=== PATIENT | female | born 1985 | race Caucasian/White ===

== ENCOUNTER 2017-02-28 09:37 | Inpatient (IN) | payer OTHER ==
[2017-02-28] MEDS ORDERED: HYDROmorphone 1 MG/ML 1 ML SYRINGE IVP STA (10:05)
[2017-02-28] MEDS ORDERED: ONDANSETRON 4 MG/2 ML VIAL IVP STA (10:05)
[2017-02-28] MEDS ORDERED: SODIUM CHLORIDE 0.9% 1,000 ML IV STA ×2 (10:05)
[2017-02-28] MEDS ORDERED: FAMOTIDINE 20 MG/2 ML VIAL IV STA (10:06)
--- NOTE | 2017-02-28 10:08 | ED ---
General Adult HPI - General Chief complaint: Abdominal Pain Stated complaint: CHEST PAIN, RADIATING INTO BACK Time Seen by Provider: 02/28/17 10:00 Source: patient, RN notes reviewed Mode of arrival: ambulatory Limitations: no limitations - History of Present Illness Initial comments: Patient 31-year-old female who presents emergency room today with a chief complaint of abdominal pain on and off over the past week. She does admit that in the past she was told that she had a bad gallbladder. She states she is time they do not want to take it out. She states was back in 2007. She states that over the last week she's noticed that after she eats she does have increased pain. States been tried Prilosec with some relief at times. States pain greatly increased last night is been staying in [place] at this time. The abdomen radiating up into the chest. She does admit that she feels around to the back as well. Denies any history of cardiac disease. Denies any family history of cardiac disease. She did admit to nausea. Denies any other complaints or symptoms. Patient denies any recent fever, chills, shortness of breath, numbness or tingling, dysuria or hematuria, constipation or diarrhea, headaches or visual changes, or any other complaints. - Related Data Home Medications Medication Instructions Recorded Confirmed Acetaminophen-Codeine 300-30mg 1 tab PO ONCE 02/28/17 02/28/17 [Tylenol #3] Hydrocodone/Acetaminophen [[place] 1 tab PO TID PRN 02/28/17 02/28/17 10-325] Omeprazole 20 mg PO DAILY 02/28/17 02/28/17 Previous Rx's Medication Instructions Recorded Levofloxacin [Levaquin] 750 mg PO DAILY #7 tab 02/28/17 Allergies Allergy/AdvReac Type Severity Reaction Status Date / Time codeine Allergy Rash/Hives Verified 02/28/17 10:54 Review of Systems ROS Statement: Those systems with pertinent positive or pertinent negative responses have been documented in the HPI. ROS Other: All systems not noted in ROS Statement are negative. Past Medical History Past Medical History: Hypertension History of Any Multi-Drug Resistant Organisms: None Reported Past Surgical History: No Surgical Hx Reported Past Psychological History: No Psychological Hx Reported Smoking Status: Never smoker Past Alcohol Use History: None Reported Past Drug Use History: None Reported General Exam - General Exam Comments Initial Comments: General: The patient is awake and alert, in no distress, and does not appear acutely ill. Eye: Pupils are equal, round and reactive to light, extra-ocular movements are intact. No nystagmus. There is normal conjunctiva bilaterally. No signs of icterus. Ears, nose, mouth and throat: There are moist mucous membranes and no oral lesions. Neck: The neck is supple, there is no tenderness or JVD. Cardiovascular: There is a regular rate and rhythm. No murmur, rub or gallop is appreciated. Respiratory: Lungs are clear to auscultation, respirations are non-labored, breath sounds are equal. No wheezes, stridor, rales, or rhonchi. Gastrointestinal: Normal appearance. Normal bowel sounds. Soft on palpation. Patient does have tenderness epigastric and right upper quadrant. Positive Leon sign. No rebound tenderness. No Guarding. No CVA tenderness. Musculoskeletal: Normal ROM, no tenderness. Strength 5/5. Sensation intact. Pulses equal bilaterally 2+. Neurological: A&O x 3. CN II-XII intact, There are no obvious motor or sensory deficits. Coordination appears grossly intact. Speech is normal. Skin: Skin is warm and dry and no rashes or lesions are noted. Psychiatric: Cooperative, appropriate mood & affect, normal judgment. Limitations: no limitations Course Vital Signs 02/28/17 09:45 Temperature 97.3 F L Pulse Rate 98 Respiratory 20 Rate Blood Pressure 183/94 O2 Sat by Pulse 99 Oximetry Medical Decision Making - Medical Decision Making Patient's ultrasound does show evidence of multiple gallstones. Patient's labs been reviewed and does show elevated amylase lipase. Patient's urinalysis shows evidence for infection. Will be started on Unasyn here in the emergency room. Patient will be admitted to the hospitalist. Patient is aware the plan states understanding. patient discussed with admitting physician Dr. Moore was seen the patient here in emergency room and we'll consult surgery. - Lab Data Result diagrams: 02/28/17 10:35 02/28/17 10:35 Lab Results 02/28/17 02/28/17 02/28/17 Range/Units 10:35 10:35 10:35 WBC 7.3 (3.8-10.6) k/uL RBC 4.89 (3.80-5.40) m/uL Hgb 12.3 (11.4-16.0) gm/dL Hct 38.4 (34.0-46.0) % MCV 78.5 L (80.0-100.0) fL MCH 25.1 (25.0-35.0) pg MCHC 32.0 (31.0-37.0) g/dL RDW 15.1 (11.5-15.5) % Plt Count 314 (150-450) k/uL Neutrophils % 69 % Lymphocytes % 22 % Monocytes % 5 % Eosinophils % 1 % Basophils % 1 % Neutrophils # 5.1 (1.3-7.7) k/uL Lymphocytes # 1.6 (1.0-4.8) k/uL Monocytes # 0.4 (0-1.0) k/uL Eosinophils # 0.1 (0-0.7) k/uL Basophils # 0.1 (0-0.2) k/uL Hypochromasia Moderate PT (9.0-12.0) sec INR (<1.1) APTT (22.0-30.0) sec Sodium 141 (137-145) mmol/L Potassium 4.1 (3.5-5.1) mmol/L Chloride 106 (98-107) mmol/L Carbon Dioxide 23 (22-30) mmol/L Anion Gap 12 mmol/L BUN 8 (7-17) mg/dL Creatinine 0.70 (0.52-1.04) mg/dL Est GFR (MDRD) Af Amer >60 (>60 ml/min/1.73 sqM) Est GFR (MDRD) Non-Af >60 (>60 ml/min/1.73 sqM) Glucose 107 H (74-99) mg/dL Calcium 9.7 (8.4-10.2) mg/dL Total Bilirubin 1.4 H (0.2-1.3) mg/dL AST 322 H (14-36) U/L ALT 355 H (9-52) U/L Alkaline Phosphatase 583 H (38-126) U/L Total Creatine Kinase 29 L (30-135) U/L CK-MB (CK-2) 0.4 (0.0-2.4) ng/mL CK-MB (CK-2) Rel Index 1.4 Troponin I <0.012 (0.000-0.034) ng/mL Total Protein 7.8 (6.3-8.2) g/dL Albumin 4.5 (3.5-5.0) g/dL Amylase 148 H (30-110) U/L Lipase 1759 H (23-300) U/L Urine Color Urine Appearance (Clear) Urine pH (5.0-8.0) Ur Specific [place] (1.001-1.035) Urine Protein (Negative) Urine Glucose (UA) (Negative) Urine Ketones (Negative) Urine Blood (Negative) Urine Nitrite (Negative) Urine Bilirubin (Negative) Urine Urobilinogen (<2.0) mg/dL Ur Leukocyte Esterase (Negative) Urine RBC (0-5) /hpf Urine WBC (0-5) /hpf Ur Squamous Epith Cells (0-4) /hpf Amorphous Sediment (None) /hpf Urine Bacteria (None) /hpf Urine Mucus (None) /hpf Urine HCG, Qual (Not Detectd) 02/28/17 02/28/17 02/28/17 Range/Units 10:35 10:35 10:35 WBC (3.8-10.6) k/uL RBC (3.80-5.40) m/uL Hgb (11.4-16.0) gm/dL Hct (34.0-46.0) % MCV (80.0-100.0) fL MCH (25.0-35.0) pg MCHC (31.0-37.0) g/dL RDW (11.5-15.5) % Plt Count (150-450) k/uL Neutrophils % % Lymphocytes % % Monocytes % % Eosinophils % % Basophils % % Neutrophils # (1.3-7.7) k/uL Lymphocytes # (1.0-4.8) k/uL Monocytes # (0-1.0) k/uL Eosinophils # (0-0.7) k/uL Basophils # (0-0.2) k/uL Hypochromasia PT 9.9 (9.0-12.0) sec INR 1.0 (<1.1) APTT 23.4 (22.0-30.0) sec Sodium (137-145) mmol/L Potassium (3.5-5.1) mmol/L Chloride (98-107) mmol/L Carbon Dioxide (22-30) mmol/L Anion Gap mmol/L BUN (7-17) mg/dL Creatinine (0.52-1.04) mg/dL Est GFR (MDRD) Af Amer (>60 ml/min/1.73 sqM) Est GFR (MDRD) Non-Af (>60 ml/min/1.73 sqM) Glucose (74-99) mg/dL Calcium (8.4-10.2) mg/dL Total Bilirubin (0.2-1.3) mg/dL AST (14-36) U/L ALT (9-52) U/L Alkaline Phosphatase (38-126) U/L Total Creatine Kinase (30-135) U/L CK-MB (CK-2) (0.0-2.4) ng/mL CK-MB (CK-2) Rel Index Troponin I (0.000-0.034) ng/mL Total Protein (6.3-8.2) g/dL Albumin (3.5-5.0) g/dL Amylase (30-110) U/L Lipase (23-300) U/L Urine Color Yellow Urine Appearance Turbid H (Clear) Urine pH 8.0 (5.0-8.0) Ur Specific [place] 1.013 (1.001-1.035) Urine Protein Trace H (Negative) Urine Glucose (UA) Negative (Negative) Urine Ketones Negative (Negative) Urine Blood Negative (Negative) Urine Nitrite Positive H (Negative) Urine Bilirubin Negative (Negative) Urine Urobilinogen 12.0 (<2.0) mg/dL Ur Leukocyte Esterase Small H (Negative) Urine RBC 10 H (0-5) /hpf Urine WBC 23 H (0-5) /hpf Ur Squamous Epith Cells 17 H (0-4) /hpf Amorphous Sediment Rare H (None) /hpf Urine Bacteria Occasional H (None) /hpf Urine Mucus Rare H (None) /hpf Urine HCG, Qual Not Detected (Not Detectd) Disposition Clinical Impression: Choledocholithiasis, Pancreatitis, UTI (urinary tract infection) Disposition: ADMITTED IP TO THIS [facility] Condition: Stable Prescriptions: Levofloxacin [Levaquin] 750 mg PO DAILY #7 tab Referrals: Hernan Lizarraga MD [Primary Care Provider] - 1-2 days Time of Disposition: 12:30
[2017-02-28 10:47] LABS: Basophils # (A) 0.1 k/uL (0-0.2); Basophils % (A) 1 %; CH 24.5; CHCM 31.3; Eosinophils # (A) 0.1 k/uL (0-0.7); Eosinophils % (A) 1 %; HCT 38.4 % (34.0-46.0); HDW 3.12; HGB 12.3 gm/dL (11.4-16.0); Hypochromasia Moderate; Luc % (Auto) 1; Lymphocytes # (A) 1.6 k/uL (1.0-4.8); Lymphocytes % (A) 22 %; MCH 25.1 pg (25.0-35.0); MCV 78.5 fL (80.0-100.0); Monocytes # (A) 0.4 k/uL (0-1.0); Monocytes % (A) 5 %; Neutrophils # (A) 5.1 k/uL (1.3-7.7); Neutrophils % (A) 69 %; RBC 4.89 m/uL (3.80-5.40); RDW 15.1 % (11.5-15.5); WBC 7.3 k/uL (3.8-10.6); WBC (Perox) 6.85
[2017-02-28 10:55] LABS: Amorphous Sediment,Urine Rare /hpf; Appearance,Urine Turbid (Clear); Bacteria,Urine Occasional /hpf; Bilirubin,Urine Negative (Negative); Glucose,Urine (UA) Negative (Negative); Ketones,Urine Negative (Negative); Leukocyte Esterase,Urine Small (Negative); Mucus,Urine Rare /hpf; Nitrite,Urine Positive (Negative); Particle Count 50271; Protein,Urine Trace (Negative); RBC,Urine 10 /hpf (0-5); Specific Gravity,Urine 1.013 (1.001-1.035); Squamous Epithelial Cell,Urine 17 /hpf (0-4); UA Billing (MACRO vs. MICRO) MICRO; WBC,Urine 23 /hpf (0-5)
[2017-02-28 10:58] LABS: Partial Thromboplastin Time 23.4 sec (22.0-30.0); Prothrombin Time 9.9 sec (9.0-12.0)
[2017-02-28 11:00] LABS: ALT 355 U/L (9-52); AST 322 U/L (14-36); Alkaline Phosphatase 583 U/L (38-126); Amylase 148 U/L (30-110); Anion Gap 12 mmol/L; Blood Urea Nitrogen 8 mg/dL (7-17); Calcium 9.7 mg/dL (8.4-10.2); Carbon Dioxide 23 mmol/L (22-30); Chloride 106 mmol/L (98-107); Glucose 107 mg/dL (74-99); Non-African American GFR(MDRD) >60 (>60 ml/min/1.73 sqM); Potassium 4.1 mmol/L (3.5-5.1); Sodium 141 mmol/L (137-145); Total Bilirubin 1.4 mg/dL (0.2-1.3); Total Protein 7.8 g/dL (6.3-8.2)
[2017-02-28 11:11] LABS: Creatine Kinase 29 U/L (30-135)
[2017-02-28 11:22] LABS: Creatine Kinase MB 0.4 ng/mL (0.0-2.4); Troponin I <0.012 ng/mL (0.000-0.034)
--- NOTE | 2017-02-28 12:12 | US ---
EXAMINATION TYPE: US abdomen limited DATE OF EXAM: 02/28/2017 11:55 AM COMPARISON: NONE CLINICAL HISTORY: Pain. Pain radiating to the back. NPO. EXAM MEASUREMENTS: Liver Length: 18.4 cm Gallbladder Wall: 0.3 cm CBD: 0.2 cm Right Kidney: 10.8 x 5.3 x 4.7 cm Pancreas: Head and tail not well seen due overlying bowel gas. Main pancreatic duct- 2.2 mm Liver: Enlarged. Left lobe not well seen due to overlying bowel gas Gallbladder: Suboptimal visualization of portions of GB. Multiple mobile stones. Lesion seen adjace nt to wall with vascular flow = 1.1 x 0.6 x 0.6 cm. Evidence for sonographic Leon's sign: neg CBD: wnl Right Kidney: wnl Visualized pancreas is felt within normal limits, portions are secured by overlying bowel gas. Visual ized liver is slightly heterogeneous without worrisome mass or ductal dilatation. Gallbladder is subo ptimally seen with shadowing mobile gallstones noted. Gallbladder wall thickness is felt slightly lob ulated and thickened on images saved at portions. No pericholecystic fluid is seen. Sonographic Todd y's sign is negative per technologist performing study. IMPRESSION: Multiple gallstones with irregularity of gallbladder wall in which abnormal wall thicken ing cannot be excluded, differential includes polyposis. No additional convincing secondary ultrasoun d evidence for acute cholecystitis. Consider HIDA scan correlation or follow-up.
--- NOTE | 2017-02-28 12:31 | XR ---
EXAMINATION TYPE: XR KUB DATE OF EXAM: 02/28/2017 12:13 PM COMPARISON: Ultrasound 02/28/2017 HISTORY: Abdominal pain TECHNIQUE: One view abdominal series FINDINGS: The osseous structures are intact. The bowel gas pattern is nonspecific. Lung bases are clear. IMPRESSION: 1. Nonspecific abdomen.
[2017-02-28] MEDS ORDERED: AMPICILLIN-SULBACTAM 3 GM in SODIUM CHLORIDE 0.9% 100 ML IVPB STA (12:39)
[2017-02-28] MEDS ORDERED: SODIUM CHLORIDE 0.9% 1,000 ML IV ONE (12:48)
[2017-02-28] MEDS ORDERED: NALOXONE 0.4 MG/ML 1 ML VIAL IV PRN (12:48)
[2017-02-28] MEDS ORDERED: PANTOPRAZOLE 40 MG/10 ML VIAL IVP STA (12:51)
[2017-02-28] MEDS: SODIUM CHLORIDE 0.9% 1,000 ML IV SCH ×2 (14:00→20:49)
--- NOTE | 2017-02-28 15:07 | HP ---
DATE OF ADMISSION: Patient is a very pleasant 31-year-old female who came in with complaints of epigastric abdominal pain, 9/10 in severity along with GERD -like symptoms and patient initially thought it is acid reflux and took some pain medications, which did not help her. Her symptoms started mostly, was on and off for the past week and more severe today and patient was complaining of some nausea. Denied any vomiting, denied any diarrhea. Denied any blood in the stools, hematemesis, hematochezia. In ER, patient was found to have elevated lipase and patient had an ultrasound of the abdomen which showed cholelithiasis and as per the reading from the radiologist, there may be a possibility of cholecystitis, although symptomatically when I examined the patient, patient Leon's sign is negative but patient just received pain medications by the time I examined the patient. Patient apparently had right upper quadrant abdominal pain as well, radiating to the back or the shoulder area which is probably from the cholelithiasis which is sharp in nature. Patient denied any fever, does not have any leukocytosis. Patient was started on antibiotics, which is probably reasonable at this point of time until surgical evaluation is done, although possibility of cholecystitis is low, patient mostly has cholelithiasis, gallstone pancreatitis. Along with that, patient may have some gastritis as well. Patient has elevated liver enzymes which will need to be monitored. This is probably because of the gallbladder disease or cholelithiasis. REVIEW OF SYSTEMS: GASTROINTESTINAL: As described in HPI. CONSTITUTIONAL: No fever, no malaise, no fatigue. HEENT: No recent visual problems or hearing problems. Denied any sore throat. CARDIOVASCULAR: No chest pain, orthopnea, PND, no palpitations, no syncope. PULMONARY: No shortness of breath, no cough, no hemoptysis. NEUROLOGICAL: No headaches, no weakness, no numbness. HEMATOLOGICAL: Denies any bleeding or petechiae. GENITOURINARY: Denies any burning micturition, frequency, or urgency. MUSCULOSKELETAL/RHEUMATOLOGICAL: Denies any joint pain, swelling, or any muscle pain. ENDOCRINE: Denies any polyuria or polydipsia. The rest of the 14 point review of systems is negative. Home medications include: 1. Acetaminophen. 2. Hydrocodone. 3. Omeprazole. PAST MEDICAL HISTORY: None. It was documented patient has hypertension. PAST SURGICAL HISTORY: None. SOCIAL HISTORY: Denied any smoking, alcohol abuse or any drug abuse. FAMILY HISTORY: Denied any family history of hypertension, diabetes mellitus in the family. PHYSICAL EXAMINATION: Temperature 97.3, pulse of 98, respiratory rate of 20, blood pressure 183/94, saturating at 99% on room air. ABDOMEN: Patient's Leon sign is negative, bowels sounds are present. Patient's abdomen is soft. There is very minimal epigastric abdominal tenderness and no rebound or rigidity was appreciated. GENERAL: The patient is alert and oriented x3, not in any acute distress. Well developed, well nourished. HEENT: Pupils are round and equally reacting to light. EOMI. No scleral icterus. No conjunctival pallor. Normocephalic, atraumatic. No pharyngeal erythema. No thyromegaly. CARDIOVASCULAR: S1 and S2 present. No murmurs, rubs, or gallops. PULMONARY: Chest is clear to auscultation, no wheezing or crackles. MUSCULOSKELETAL: No joint swelling or deformity. EXTREMITIES: No cyanosis, clubbing, or pedal edema. NEUROLOGICAL: Gross neurological examination did not reveal any focal deficits. SKIN: No rashes. LABORATORY DATA: CBC, CMP are abnormal for elevated bilirubin of 1.4, AST and ALT at 322 and 355. Amylase is 148, lipase is 759. Ultrasound of the gallbladder as mentioned above. KUB x-ray was reviewed. ASSESSMENT AND PLAN: 1. Gallstone pancreatitis. Patient will be n.p.o. Patient will be started on IV fluids at 125/mL/h. 2. Possible gastritis. 3. Cholelithiasis, the possibility of cholecystitis is low until surgical evaluation. Unasyn will be continued which was ordered from ER. 4. Elevated liver enzymes secondary to cholelithiasis. Patient's Tylenol-based medications will be held and repeat comprehensive metabolic profile tomorrow.
[2017-02-28] MEDS: HYDROmorphone 1 MG/ML 1 ML SYRINGE IV PRN ×3 (17:10→22:51)
--- NOTE | 2017-02-28 17:32 | P.GSCN ---
History of Present Illness Consult date: 02/28/17 Reason for Consult: Gallstone pancreatitis History of present illness: The patient says she has a history of gallstones. She has had intermittent attacks over the years. She began expressing pain yesterday evening around 8: 30 or 9:00. Pain was in the upper abdomen more on the right side. There was radiation to the back. No nausea or vomiting. Pain is improved today. Her labs show evidence of gallstone pancreatitis. She denies any change in the color of her skin urine or stool. She is afebrile. White blood cell count is normal. Review of Systems The patient denies any acute changes in his vision or hearing, no dysphagia or odynophagia, no chest pain or shortness of breath, no dysuria or hematuria, no headache, no runny nose, no rectal bleeding or melena, no unexplained weight loss Past Medical History Past Medical History: Hypertension Additional Past Medical History / Comment(s): 2007 gallbladder problems during , lately HTN but not started on any meds yet, UTIs. History of Any Multi-Drug Resistant Organisms: None Reported Past Surgical History: No Surgical Hx Reported Past Anesthesia/Blood Transfusion Reactions: No Reported Reaction Additional Past Anesthesia/Blood Transfusion Reaction / Comm: Pt has never had anesthesia. Past Psychological History: No Psychological Hx Reported Additional Psychological History / Comment(s): Pt resides with [facility] and 8 children ages 8 months to 12 yrs of age. She is independent. Smoking Status: Never smoker Past Alcohol Use History: None Reported Past Drug Use History: None Reported - Past Family History Mother Family Medical History: Cancer Additional Family Medical History / Comment(s): Mother of bilateral renal cancer at the age of 52 yrs. Father Family Medical History: Blood Disorder, Hyperlipidemia, Hypertension Additional Family Medical History / Comment(s): Father has a blood disorder but pt does not recall what type. He sees an oncologist monthly. Medications and Allergies Home Medications Medication Instructions Recorded Confirmed Type Acetaminophen-Codeine 300-30mg 1 tab PO ONCE 02/28/17 02/28/17 History [Tylenol #3] Hydrocodone/Acetaminophen [[place] 1 tab PO TID PRN 02/28/17 02/28/17 History 10-325] Omeprazole 20 mg PO DAILY 02/28/17 02/28/17 History Allergies Allergy/AdvReac Type Severity Reaction Status Date / Time codeine Allergy Rash/Hives Verified 02/28/17 16:39 Surgical - Exam Vital Signs Temp Pulse Resp BP Pulse Ox 97.3 F L 98 20 183/94 99 02/28/17 09:45 02/28/17 09:45 02/28/17 09:45 02/28/17 09:45 02/28/17 09:45 Physical exam: General: Well-developed, well-nourished HEENT: Normocephalic, sclerae nonicteric Abdomen: Mild epigastric tenderness, nondistended Extremities: No edema Neuro: Alert and oriented Results - Labs 02/28/17 10:35 02/28/17 10:35 Abnormal Lab Results - Last 24 Hours (Table) 02/28/17 02/28/17 02/28/17 Range/Units 10:35 10:35 10:35 MCV 78.5 L (80.0-100.0) fL Glucose 107 H (74-99) mg/dL Total Bilirubin 1.4 H (0.2-1.3) mg/dL AST 322 H (14-36) U/L ALT 355 H (9-52) U/L Alkaline Phosphatase 583 H (38-126) U/L Total Creatine Kinase 29 L (30-135) U/L Amylase 148 H (30-110) U/L Lipase 1759 H (23-300) U/L Urine Appearance (Clear) Urine Protein (Negative) Urine Nitrite (Negative) Ur Leukocyte Esterase (Negative) Urine RBC (0-5) /hpf Urine WBC (0-5) /hpf Ur Squamous Epith Cells (0-4) /hpf Amorphous Sediment (None) /hpf Urine Bacteria (None) /hpf Urine Mucus (None) /hpf 02/28/17 Range/Units 10:35 MCV (80.0-100.0) fL Glucose (74-99) mg/dL Total Bilirubin (0.2-1.3) mg/dL AST (14-36) U/L ALT (9-52) U/L Alkaline Phosphatase (38-126) U/L Total Creatine Kinase (30-135) U/L Amylase (30-110) U/L Lipase (23-300) U/L Urine Appearance Turbid H (Clear) Urine Protein Trace H (Negative) Urine Nitrite Positive H (Negative) Ur Leukocyte Esterase Small H (Negative) Urine RBC 10 H (0-5) /hpf Urine WBC 23 H (0-5) /hpf Ur Squamous Epith Cells 17 H (0-4) /hpf Amorphous Sediment Rare H (None) /hpf Urine Bacteria Occasional H (None) /hpf Urine Mucus Rare H (None) /hpf Diabetes panel 02/28/17 Range/Units 10:35 Sodium 141 (137-145) mmol/L Potassium 4.1 (3.5-5.1) mmol/L Chloride 106 (98-107) mmol/L Carbon Dioxide 23 (22-30) mmol/L BUN 8 (7-17) mg/dL Creatinine 0.70 (0.52-1.04) mg/dL Glucose 107 H (74-99) mg/dL Calcium 9.7 (8.4-10.2) mg/dL AST 322 H (14-36) U/L ALT 355 H (9-52) U/L Alkaline Phosphatase 583 H (38-126) U/L Total Protein 7.8 (6.3-8.2) g/dL Albumin 4.5 (3.5-5.0) g/dL Calcium panel 02/28/17 Range/Units 10:35 Calcium 9.7 (8.4-10.2) mg/dL Albumin 4.5 (3.5-5.0) g/dL Pituitary panel 02/28/17 Range/Units 10:35 Sodium 141 (137-145) mmol/L Potassium 4.1 (3.5-5.1) mmol/L Chloride 106 (98-107) mmol/L Carbon Dioxide 23 (22-30) mmol/L BUN 8 (7-17) mg/dL Creatinine 0.70 (0.52-1.04) mg/dL Glucose 107 H (74-99) mg/dL Calcium 9.7 (8.4-10.2) mg/dL Adrenal panel 02/28/17 Range/Units 10:35 Sodium 141 (137-145) mmol/L Potassium 4.1 (3.5-5.1) mmol/L Chloride 106 (98-107) mmol/L Carbon Dioxide 23 (22-30) mmol/L BUN 8 (7-17) mg/dL Creatinine 0.70 (0.52-1.04) mg/dL Glucose 107 H (74-99) mg/dL Calcium 9.7 (8.4-10.2) mg/dL Total Bilirubin 1.4 H (0.2-1.3) mg/dL AST 322 H (14-36) U/L ALT 355 H (9-52) U/L Alkaline Phosphatase 583 H (38-126) U/L Total Protein 7.8 (6.3-8.2) g/dL Albumin 4.5 (3.5-5.0) g/dL Assessment and Plan (1) Gallstone pancreatitis Narrative/Plan: Continue empiric antibiotics. Clear liquid diet. Recheck labs tomorrow. Status: Acute
[2017-02-28] MEDS: AMPICILLIN-SULBACTAM 3 GM in SODIUM CHLORIDE 0.9% 100 ML IVPB SCH (20:49)
[2017-03-01] MEDS: HYDROmorphone 1 MG/ML 1 ML SYRINGE IV PRN ×2 (02:49→13:53)
[2017-03-01] MEDS: AMPICILLIN-SULBACTAM 3 GM in SODIUM CHLORIDE 0.9% 100 ML IVPB SCH (05:18)
[2017-03-01 06:18] LABS: ALT 400 U/L (9-52); AST 298 U/L (14-36); Alkaline Phosphatase 417 U/L (38-126); Amylase 51 U/L (30-110); Anion Gap 10 mmol/L; Blood Urea Nitrogen 5 mg/dL (7-17); Carbon Dioxide 19 mmol/L (22-30); Chloride 110 mmol/L (98-107); Glucose 89 mg/dL (74-99); Non-African American GFR(MDRD) >60 (>60 ml/min/1.73 sqM); Potassium 3.9 mmol/L (3.5-5.1); Sodium 139 mmol/L (137-145); Total Bilirubin 0.5 mg/dL (0.2-1.3); Total Protein 6.4 g/dL (6.3-8.2)
[2017-03-01 07:14] LABS: Basophils % (A) 1 %; CH 24.1; CHCM 29.9; Eosinophils # (A) 0.1 k/uL (0-0.7); Eosinophils % (A) 2 %; HDW 2.87; HGB 10.9 gm/dL (11.4-16.0); Hypochromasia Marked; Luc # (Auto) 0.13; Luc % (Auto) 2; Lymphocytes # (A) 1.8 k/uL (1.0-4.8); Lymphocytes % (A) 31 %; MCH 25.3 pg (25.0-35.0); MCHC 31.3 g/dL (31.0-37.0); MCV 80.9 fL (80.0-100.0); Mean Platelet Volume 7.3; Monocytes # (A) 0.3 k/uL (0-1.0); Monocytes % (A) 5 %; Neutrophils # (A) 3.4 k/uL (1.3-7.7); Neutrophils % (A) 59 %; RBC 4.32 m/uL (3.80-5.40); RDW 15.5 % (11.5-15.5); WBC 5.8 k/uL (3.8-10.6); WBC (Perox) 6.24
[2017-03-01] MEDS ORDERED: PANTOPRAZOLE 40 MG/10 ML VIAL IVP SCH (09:00)
--- NOTE | 2017-03-01 11:33 | P.PN ---
Subjective Principal diagnosis: Gallstone pancreatitis Patient doing well today. Her pain is now resolved. Her amylase and lipase are normalized. Liver enzymes are improved. She would like to eat more today. Objective - Vital Signs Vital signs: Vital Signs Temp 98.0 F 03/01/17 08:03 Pulse 82 03/01/17 08:03 Resp 16 03/01/17 08:03 BP 120/73 03/01/17 08:03 Pulse Ox 96 03/01/17 08:03 Intake & Output 02/28/17 03/01/17 03/01/17 18:59 06:59 18:59 Intake Total 2120 Balance 2120 Weight 107.955 kg Intake: IV 200 Ampicillin-Sulbactam 3 gm 200 In Sodium Chloride 0.9% 100 ml @ 100 mls/hr IVPB ONCE STA Rx#:[id number] Intake, IV Titration 1920 Amount Sodium Chloride 0.9% 1, 1920 000 ml @ 125 mls/hr IV . Q8H VIANEY Rx#:[id number] Other: # Voids 1 - Exam Abdomen: Soft, nondistended, nontender - Labs CBC & Chem 7: 03/01/17 05:36 03/01/17 05:36 Labs: Abnormal Lab Results - Last 24 Hours (Table) 03/01/17 03/01/17 Range/Units 05:36 05:36 Hgb 10.9 L (11.4-16.0) gm/dL Chloride 110 H (98-107) mmol/L Carbon Dioxide 19 L (22-30) mmol/L BUN 5 L (7-17) mg/dL AST 298 H (14-36) U/L ALT 400 H (9-52) U/L Alkaline Phosphatase 417 H (38-126) U/L Assessment and Plan (1) Gallstone pancreatitis Narrative/Plan: Continue to advance diet as tolerated. Patient would like to go home and schedule outpatient cholecystectomy which is reasonable. Outpatient follow-up with Dr. Huffman. Status: Acute
[2017-03-01] MEDS: SODIUM CHLORIDE 0.9% 1,000 ML IV SCH ×2 (13:59)
--- NOTE | 2017-03-01 14:20 | DS ---
DATE OF ADMISSION: 02/28/2017 DATE OF DISCHARGE: Patient is a 31-year-old, came in for gallstone pancreatitis. Patient is feeling much better today. Patient will be discharged today. Patient still has mildly elevated liver enzymes, if they trend down today, patient will discharge and patient's diet is being advanced to soft diet. Patient was evaluated by Dr. Sharif Scott and patient will need gallbladder surgery down the line and patient will be set up a followup with Dr. Scott as an outpatient. This dictation is both progress note and discharge summary. Patient's liver enzymes lipase has come down. VITAL SIGNS: Temperature 97.8, pulse of 93, respiratory rate of 16, blood pressure is 138/84, saturating at 96% on room air. ABDOMEN: Patient's abdominal pain completely resolved at this point of time. GENERAL: The patient is alert and oriented x3, not in any acute distress. Well developed, well nourished. HEENT: Pupils are round and equally reacting to light. EOMI. No scleral icterus. No conjunctival pallor. Normocephalic, atraumatic. No pharyngeal erythema. No thyromegaly. CARDIOVASCULAR: S1 and S2 present. No murmurs, rubs, or gallops. PULMONARY: Chest is clear to auscultation, no wheezing or crackles. MUSCULOSKELETAL: No joint swelling or deformity. EXTREMITIES: No cyanosis, clubbing, or pedal edema. NEUROLOGICAL: Gross neurological examination did not reveal any focal deficits. SKIN: No rashes. LABORATORY DATA: Patient AST has come down. ALT has gone up a little bit, bilirubin has come down. Patient has gallstone, low suspicion for cholecystitis. Will not require any antibiotics in my opinion and Tylenol No. 3, hydrocodone, [place] are discontinued because of elevated liver enzymes and patient will be given prescription for tramadol and follow with Dr. Scott as an outpatient. ASSESSMENT AND PLAN: 1. Gallstone pancreatitis. 2. Cholelithiasis. 3. Possible gastritis. 4. Elevated liver enzymes due to ( ) gallstones and patient if cleared by Dr. Scott, patient will be discharged today after advancing the diet, if she is able to tolerate soft diet and patient will discharge on Prilosec and tramadol. Patient will follow with Dr. Lizarraga in 3 to 7 days; Dr. Sharif Scott in about a week to 2 weeks. Patient eventually will need cholecystectomy. Spent greater than 35 minutes in total discharge. DISCHARGE DIET: Low fat diet. Activity as tolerated.
[2017-03-01 15:54] LABS: Bilirubin, Delta 0.2 mg/dL (0.0-0.2); Total Bilirubin 0.4 mg/dL (0.2-1.3); Total Protein 6.6 g/dL (6.3-8.2)
[2017-03-02] MEDS: HYDROmorphone 1 MG/ML 1 ML SYRINGE IV PRN ×2 (06:09→12:25)
[2017-03-02 06:14] LABS: Basophils % (A) 1 %; CH 24.3; CHCM 30.7; Eosinophils # (A) 0.1 k/uL (0-0.7); Eosinophils % (A) 2 %; HCT 34.7 % (34.0-46.0); HDW 3.07; HGB 10.8 gm/dL (11.4-16.0); Hypochromasia Moderate; Luc # (Auto) 0.12; Luc % (Auto) 2; Lymphocytes # (A) 2.1 k/uL (1.0-4.8); Lymphocytes % (A) 33 %; MCH 24.6 pg (25.0-35.0); MCV 79.3 fL (80.0-100.0); Mean Platelet Volume 7.3; Monocytes # (A) 0.4 k/uL (0-1.0); Monocytes % (A) 6 %; Neutrophils # (A) 3.6 k/uL (1.3-7.7); Neutrophils % (A) 57 %; RBC 4.38 m/uL (3.80-5.40); RDW 15.2 % (11.5-15.5); WBC 6.4 k/uL (3.8-10.6); WBC (Perox) 6.09
[2017-03-02 06:34] LABS: ALT 274 U/L (9-52); AST 115 U/L (14-36); Alkaline Phosphatase 375 U/L (38-126); Anion Gap 9 mmol/L; Blood Urea Nitrogen 5 mg/dL (7-17); Calcium 9.2 mg/dL (8.4-10.2); Carbon Dioxide 23 mmol/L (22-30); Chloride 108 mmol/L (98-107); Glucose 95 mg/dL (74-99); Non-African American GFR(MDRD) >60 (>60 ml/min/1.73 sqM); Sodium 140 mmol/L (137-145); Total Bilirubin 0.4 mg/dL (0.2-1.3); Total Protein 6.7 g/dL (6.3-8.2)
--- NOTE | 2017-03-02 10:54 | P.PN ---
Subjective Principal diagnosis: Gallstone pancreatitis Patient was going to go home last night however had some increased abdominal pain once again. She feels better this morning. She would like to go home today. Her liver enzymes are trending down. Objective - Vital Signs Vital signs: Vital Signs Temp 98.7 F 03/01/17 20:14 Pulse 71 03/01/17 20:14 Resp 18 03/01/17 23:00 BP 128/76 03/01/17 20:14 Pulse Ox 99 03/01/17 20:14 Intake & Output 03/01/17 03/02/17 03/02/17 18:59 06:59 18:59 Intake Total 210 600 300 Balance 210 600 300 Intake: Oral 210 600 300 Other: # Voids 2 2 - Exam Abdomen: Soft, nondistended, nontender - Labs CBC & Chem 7: 03/02/17 05:52 03/02/17 05:52 Labs: Abnormal Lab Results - Last 24 Hours (Table) 03/01/17 03/02/17 03/02/17 Range/Units 15:16 05:52 05:52 Hgb 10.8 L (11.4-16.0) gm/dL MCV 79.3 L (80.0-100.0) fL MCH 24.6 L (25.0-35.0) pg Chloride 108 H (98-107) mmol/L BUN 5 L (7-17) mg/dL AST 210 H 115 H (14-36) U/L ALT 351 H 274 H (9-52) U/L Alkaline Phosphatase 399 H 375 H (38-126) U/L Assessment and Plan (1) Gallstone pancreatitis Narrative/Plan: Begins I soft diet. Outpatient follow-up for cholecystectomy. Status: Acute
[2017-03-02 11:02] VITALS: BMI 38.4
[2017-03-02 13:02] VITALS: RESP 20
[2017-03-02 18:13] VITALS: BP 144/78; PULSE 85; TEMP 98
--- NOTE | 2017-03-02 20:29 | DS ---
DATE OF ADMISSION: 02/28/2017 DATE OF DISCHARGE: 03/02/2017 HOSPITAL COURSE: Ms. Salvador is a 31-year-old female with a past medical history of chronic low back pain. Admitted to the hospital for gallstone pancreatitis. Patient was initially given IV fluids, also started on antibiotics. After getting IV fluids and keeping her n.p.o. her enzymes did trend down. She is currently asymptomatic, tolerated a soft diet this afternoon and has been cleared by surgical services to be discharged home in stable condition. The patient's liver enzymes are trending down. On examination, patient's vital signs at the time of discharge: Temperature is 98, heart rate 86, respiratory rate 20, blood pressure 142/75, saturating at 100% on room air. GENERAL EXAMINATION: Patient appears to be no acute distress. HEAD: Atraumatic, normocephalic. EYES: Pupils, round, and reactive to light. No pallor. No icterus. NECK: No JVD. No thyromegaly. CARDIOVASCULAR: S1, S2 heard. LUNGS: Bilateral breath sounds are positive. No wheeze or crackles. ABDOMEN: Soft, nontender. Bowel sounds positive. EXTREMITIES: Alert, awake and oriented x3. The patient's labs: White count is 6.4, hemoglobin is 10.8, platelets of 308. Sodium 140, potassium 4, chloride 108, bicarb 23, BUN 5, creatinine 0.70, AST 115, AST 274. Alkaline phosphatase 375. DISCHARGE DIAGNOSES: 1. Pancreatitis secondary to gallstones. 2. Cholelithiasis. 3. Positive gastritis. 4. Elevated liver enzymes due to number one. Patient's discharge medications: 1. Tylenol #3 10 pills given to be used p.r.n. for pain q.8 hours. 2. Omeprazole 20 mg p.o. daily. She is advised to follow with Dr. Scott within one weeks of time and PCP, Dr. Hernan Lizarraga in 2 to 3 days.
[2017-03-03] MEDS ORDERED: PANTOPRAZOLE 40 MG TABLET PO SCH (09:00)
== END 2017-03-02 18:03 | disposition home or self-care (01) | DRG 440 ==
LOC: EC 09:37 → 5MS5E 12:48 → 6PED 15:48
PROVIDERS: ADMIT Internal Medicine; ATTEND Internal Medicine
DX: K85.10 Biliary acute pancreatitis without necrosis or infection (principal); I10 Essential (primary) hypertension; K21.9 Gastro-esophageal reflux disease without esophagitis; K29.70 Gastritis, unspecified, without bleeding; Z79.899 Other long term (current) drug therapy; Z80.51 Family history of malignant neoplasm of kidney; Z82.49 Family history of ischemic heart disease and other diseases of the circulatory system; Z88.5 Allergy status to narcotic agent
CPT/HCPCS: 36415; 74000; 76705; 80053; 80076; 81001; 81025; 82150; 82550; 82553; 83690; 84484; 85025; 85610; 85730; 93005

== ENCOUNTER 2017-03-08 10:06 | Day surgery (SDC) | payer OTHER ==
[2017-03-05 16:56] VITALS: BMI 37.1
[~2017-03-08 10:06] MED LIST: DEXAMETHASONE SOD PHOSPHATE 10 MG/ML 1 ML VIAL IV ONE; HEPARIN SODIUM,PORCINE 5,000 UNIT/ML 1 ML VIAL SQ ONE; LACTATED RINGERS 1,000 ML IV SCH; MIDAZOLAM 2 MG/2 ML VIAL IV PRN; ONDANSETRON 4 MG/2 ML VIAL IVP ONE; SCOPOLAMINE 1.5MG/72HR PATCH TRANSDERM ONE; ceFAZolin 2 GM in SODIUM CHLORIDE 0.9% 100 ML IVPB ONE
--- NOTE | 2017-03-08 10:49 | P.GSHP ---
History of Present Illness H&P Date: 03/08/17 Chief Complaint: Gallstone pancreatitis Patient is known to our service. She was recently hospitalized last week with an episode of gallstone pancreatitis. Her enzymes came down nicely during the hospitalization and she was discharged home. Repeat labs were drawn a few days ago but those results unfortunately are still pending as an outpatient. Repeat CMP is being evaluated at this time. Patient is pain free. No change recently in the color of her skin urine or stool. Denies rectal bleeding or melena. Ultrasound previously showed gallstones. Past Medical History Past Medical History: Hypertension Additional Past Medical History / Comment(s): GALLSTONES AND PANCREATITIS, POSSIBLE HTN NOT ON ANY MEDS History of Any Multi-Drug Resistant Organisms: None Reported Past Surgical History: No Surgical Hx Reported Past Anesthesia/Blood Transfusion Reactions: No Reported Reaction Additional Past Anesthesia/Blood Transfusion Reaction / Comment(s): Pt has never had anesthesia. Past Psychological History: No Psychological Hx Reported Additional Psychological History / Comment(s): Pt resides with [facility] and 8 children ages 8 months to 12 yrs of age. She is independent. Smoking Status: Never smoker Past Alcohol Use History: None Reported Past Drug Use History: None Reported - Past Family History Mother Family Medical History: Cancer Additional Family Medical History / Comment(s): Mother of bilateral renal cancer at the age of 52 yrs. Father Family Medical History: Blood Disorder, Hyperlipidemia, Hypertension Additional Family Medical History / Comment(s): Father has a blood disorder but pt does not recall what type. He sees an oncologist monthly. Medications and Allergies Home Medications Medication Instructions Recorded Confirmed Type Omeprazole 20 mg PO DAILY 02/28/17 03/08/17 History Hydrocodone/Acetaminophen [[place] 1 tab PO TID PRN 03/05/17 03/08/17 History 10-325 Tablet] Allergies Allergy/AdvReac Type Severity Reaction Status Date / Time No Known Allergies Allergy Verified 03/08/17 10:26 Surgical - Exam Vital Signs Temp Pulse Resp BP Pulse Ox 98.6 F 101 H 18 157/92 99 03/08/17 10:25 03/08/17 10:25 03/08/17 10:25 03/08/17 10:25 03/08/17 10:25 Physical exam: General: Well-developed, well-nourished HEENT: Normocephalic, sclerae nonicteric Abdomen: Nontender, nondistended Extremities: No edema Neuro: Alert and oriented Assessment and Plan (1) Gallstone pancreatitis Narrative/Plan: Check morning labs. We'll proceed with laparoscopic cholecystectomy at this time. Risks of bleeding, infection, bile duct injury, retained bile duct stone , biloma formation, conversion to an open procedure were discussed. She understands and wishes to proceed. Status: Acute
[2017-03-08 11:24] LABS: ALT 69 U/L (9-52); AST 25 U/L (14-36); Alkaline Phosphatase 265 U/L (38-126); Anion Gap 12 mmol/L; Blood Urea Nitrogen 8 mg/dL (7-17); Carbon Dioxide 18 mmol/L (22-30); Chloride 107 mmol/L (98-107); Glucose 95 mg/dL (74-99); Non-African American GFR(MDRD) >60 (>60 ml/min/1.73 sqM); Sodium 137 mmol/L (137-145); Total Bilirubin 0.5 mg/dL (0.2-1.3); Total Protein 6.5 g/dL (6.3-8.2)
[2017-03-08] MEDS ORDERED: fentaNYL (PF) 50 MCG/ML 2 ML AMP ONE (11:34)
[2017-03-08] MEDS ORDERED: MIDAZOLAM 2 MG/2 ML VIAL ONE (11:34)
[2017-03-08] MEDS ORDERED: LIDOCAINE 1% INJ 10MG/ML (20 ML MDV) ONE (11:34)
[2017-03-08] MEDS ORDERED: PROPOFOL 10 MG/ML 20 ML VIAL IV ONE (11:34)
[2017-03-08] MEDS ORDERED: ROCURONIUM BROMIDE 10 MG/ML 10 ML VIAL IV ONE (11:34)
[2017-03-08] MEDS ORDERED: GLYCOPYRROLATE 0.2 MG/ML 2 ML VIAL ONE (11:34)
[2017-03-08] MEDS ORDERED: SUCCINYLCHOLINE CHLORIDE 100 MG/5 ML SYR IV ONE (11:34)
[2017-03-08] MEDS ORDERED: HYDROmorphone (PF) 1 MG/ML ONE (11:34)
[2017-03-08] MEDS ORDERED: NEOSTIGMINE 1 MG/ML 10 ML VIAL ONE (11:34)
[2017-03-08] MEDS ORDERED: BUPIVACAIN-EPI 0.25%-1:200,000 30 ML VIAL IJ ONE ×2 (11:53)
[2017-03-08 12:47] VITALS: TEMP 98
[2017-03-08] MEDS: HYDROmorphone 1 MG/ML 1 ML SYRINGE IVP PRN ×3 (12:54→13:24)
[2017-03-08] MEDS ORDERED: KETOROLAC 30 MG/ML 1 ML VIAL IVP ONE (12:58)
[2017-03-08] MEDS ORDERED: NALOXONE 0.4 MG/ML 1 ML VIAL IV PRN (13:06)
[2017-03-08] MEDS ORDERED: HYDROcodone/APAP 5-325MG 1 EACH TAB PO PRN (13:06)
--- NOTE | 2017-03-08 13:09 | P.PCN ---
Date of Procedure: 03/08/17 Preoperative Diagnosis: Postoperative Diagnosis: Procedure(s) Performed: PREOPERATIVE DIAGNOSIS: Gallstone pancreatitis POSTOPERATIVE DIAGNOSIS: Same PROCEDURE: Laparoscopic cholecystectomy SURGEON: Sonia EBL: Minimal see anesthesia record ANESTHESIA: Gen. COMPLICATIONS: None OPERATIVE PROCEDURE: The patient was brought and placed on the operating room table in the supine position. The patient was placed under general anesthesia at that time. The abdomen was prepped and draped in the usual sterile fashion. A small vertical infraumbilical incision was made. The fascia was grasped with the Romy forceps. The fascia was retracted anteriorly. The Veress needle was advanced into the peritoneal cavity. The saline drop test was normal. Insufflation took place up to 15 mmHg. A 5 mm optical trocar was advanced and the peritoneal cavity. 2 additional 5 mm trochars were placed in the right upper quadrant under direct visualization. A 12 mm trocar was advanced into the epigastric incision site. The gallbladder was retracted superiorly and laterally. The peritoneum overlying the infundibulum was bluntly dissected. The patient's cystic duct was visualized. The junction between the cystic duct common and hepatic duct was identified. As expected the cystic duct with slightly more dilated than usual. The cystic duct was then divided after placement of 3 12 mm clips on the patient's side and one on the specimen side. The cystic artery was identified and clipped as well. A small vessel was seen along the gallbladder fossa and clipped as well. The gallbladder was then removed from the liver bed using electrocautery. The gallbladder was then removed from the epigastric trocar site with an Endo Catch bag. The gallbladder fossa was irrigated with saline. There was no evidence of any bleeding or biliary drainage seen. The trochars were then removed. The fascia at the 12 millimeter site was closed using a Stevne Rothman 0 Vicryl stitch. The skin at all 4 sites was closed using a 4-0 Monocryl stitch. At the end of this procedure the sponge and needle counts were correct. DISPOSITION: Stable to the recovery room Implants: Indications for Procedure: Operative Findings: Description of Procedure:
[2017-03-08] MEDS ORDERED: LACTATED RINGERS 1,000 ML IV ONE (13:24)
[2017-03-08 13:58] VITALS: RESP 16
[2017-03-08] MEDS ORDERED: HYDROcodone/APAP 10-325MG 1 EACH TAB PO ONE (14:01)
[2017-03-08 14:41] VITALS: BP 143/93; PULSE 93
== END 2017-03-08 15:02 | disposition home or self-care (01) ==
LOC: OR 10:06
PROVIDERS: ATTEND Surgery
DX: K80.10 Calculus of gallbladder with chronic cholecystitis without obstruction (principal); K85.90 Acute pancreatitis without necrosis or infection, unspecified; K21.9 Gastro-esophageal reflux disease without esophagitis; Z79.899 Other long term (current) drug therapy
CPT/HCPCS: 81025; 88304; 80053; 47562; J2250; J1644; J1100; J2710; J0690; J2405; J2001; J3010; J1885; J1170; J0330; J2704